=== PATIENT | female | born 1945 | race Caucasian/White ===

== ENCOUNTER 2018-06-29 10:19 | Inpatient (IN) | payer MEDICARE ==
[~2018-06-29] VITALS: Ht 154.9 cm; Wt 81.6 kg
[2018-06-29] MEDS ORDERED: IV NS 0.9% 1,000 ML BAG IV ONE (10:30)
[2018-06-29] MEDS ORDERED: ONDANSETRON HCL/PF 4 MG/2 ML VIAL IVP ONE (10:30)
[2018-06-29] MEDS ORDERED: MECLIZINE HCL 12.5 MG TABLET PO ONE (10:30)
[2018-06-29] MEDS ORDERED: LORAZEPAM INJ 2 MG/ML VIAL IV ONE (10:30)
[2018-06-29] MEDS ORDERED: MECLIZINE HCL 12.5 MG TABLET ONE (10:34)
[2018-06-29] MEDS ORDERED: ONDANSETRON HCL/PF 4 MG/2 ML VIAL ONE (10:34)
[2018-06-29] MEDS ORDERED: LORAZEPAM INJ 2 MG/ML VIAL ONE (10:35)
[2018-06-29 10:43] LABS: BASOPHILS # (AUTO) 0.1 /CMM (0.0-0.2); BASOPHILS % (AUTO) 0.6 % (0.0-2.0); EOSINOPHILS % (AUTO) 1.5 % (0.0-6.0); HEMATOCRIT 45 % (33-45); HEMOGLOBIN 14.9 g/dL (11.5-14.8); LYMPHOCYTES # (AUTO) 4.1 /CMM (0.8-4.8); LYMPHOCYTES % (AUTO) 49.1 % (20.0-44.0); MEAN CORPUSCULAR HGB CONC 33 g/dl (31.0-36.0); MEAN CORPUSCULAR VOLUME 86 fL (82-100); MONOCYTES # (AUTO) 0.6 /CMM (0.1-1.30); MONOCYTES % (AUTO) 6.8 % (2.0-12.0); NEUTROPHILS # (AUTO) 3.5 /CMM (1.8-8.9); PLATELET COUNT (AUTO) 207 /CMM (150-450); RED BLOOD CELL COUNT(AUTO) 5.24 MIL/uL (4.0-5.2); WHITE BLOOD COUNT (AUTO) 8.3 K/uL (4.3-11.0)
[2018-06-29 10:56] LABS: ALANINE AMINOTRANSFERASE 24 U/L (12-78); ALBUMIN 4.1 g/dL (3.4-5.0); ALKALINE PHOSPHATASE 114 U/L (46-116); ASPARTATE AMINOTRANSFERASE 16 U/L (15-37); BILIRUBIN,DIRECT 0.1 mg/dL (0.0-0.2); BILIRUBIN,TOTAL 0.6 mg/dL (0.2-1.0); CALCIUM, SERUM 10.2 mg/dL (8.5-10.1); CARBON DIOXIDE 26 mmol/L (21-32); CHLORIDE 99 mmol/L (98-107); GLUCOSE 173 mg/dL (74-106); SODIUM SERUM 139 mmol/L (136-145); TOTAL PROTEIN, SERUM 7.8 g/dL (6.4-8.2); UREA NITROGEN, BLOOD 21 mg/dL (7-18)
[2018-06-29 11:00] LABS: POTASSIUM 2.5 mmol/L (3.5-5.1)
--- NOTE | 2018-06-29 11:03 | NUR ---
patient wheeled to CT.
[2018-06-29 11:19] LABS: MAGNESIUM 1.5 mg/dL (1.8-2.4); PHOSPHORUS 1.3 mg/dL (2.5-4.9)
[2018-06-29] MEDS ORDERED: POTASSIUM CHLORIDE 20 MEQ TAB.PRT.SR PO ONE ×2 (11:30→11:51)
[2018-06-29] MEDS ORDERED: POTASSIUM CL. PREMIX PERIPHER. 50 ML ONE ×4 (11:49→17:35)
[2018-06-29] MEDS ORDERED: Magnesium 1GM/D5W 100ML PREMIX 100 ML IV ONE ×2 (11:50→14:20)
[2018-06-29] MEDS ORDERED: IV NS 0.9% 250 ML IV ONE (11:51)
[2018-06-29] MEDS ORDERED: CT SWABBABLE VALVE TRANS SET 1 EA INFUS.SET MC ONE (11:51)
[2018-06-29] MEDS ORDERED: IOHEXOL-350 100 ML VIAL IV ONE (11:51)
--- NOTE | 2018-06-29 11:54 | NUR ---
[address] CALL[address] STROKE PER DR. QUEVEDO [address] VIA LUCINDA.
--- NOTE | 2018-06-29 12:12 | NUR ---
PT BACK FROM CT VIA [facility]. PT AMB TO RESTROOM ASSISTED BY HER DAUGHTER, LUIS M WELL. C/O " LITTLE DIZZY ". DENIES CP, SOB, N/V WHILE AMBULATING. DR. QUEVEDO AWARE.
[2018-06-29] MEDS: POTASSIUM CL. PREMIX PERIPHER. 50 ML IV SCH ×4 (12:30→19:37)
[2018-06-29 12:42] LABS: APPEARANCE,URINE Slightly Cloudy (CLEAR); BILIRUBIN,URINE Negative (NEGATIVE); BLOOD, URINE Negative Ery/uL (NEGATIVE); COLOR,URINE Light yellow (YELLOW); KETONES,URINE 15 (NEGATIVE); LEUKOCYTE ESTERASE ,URINE Small (NEGATIVE); NITRITE, URINE Negative (NEGATIVE); PROTEIN,URINE Negative (NEGATIVE); UGLUCOSE Negative (NEGATIVE); UROBILINOGEN,URINE 0.2 EU/dL (0.2)
--- NOTE | 2018-06-29 12:47 | NUR ---
PT SITTING UP SPEAKING FLUENTLY WITH HER FAMILY. NO SLURRED SPEECH, NO FACIAL DROOP, NO ARM/LEG DRIFTING, NO VISUAL DISTURBANCES. ABLE TO SWALLOW PILLS & WATER W/O DIFFICULTY. VSS. C/O OF HEADACHE 09/27, ERMD AWARE. WILL CONT TO MONITOR. FAMILY @ BS.
[2018-06-29 12:49] LABS: BACTERIA,URINE Rare /HPF (None Seen); RBC,URINE 0-2 /HPF (0-2); SQUAMOUS EPITHELIAL CELL,UR Rare /HPF (None Seen); WBC,URINE 0-2 /HPF (0-3)
[2018-06-29] MEDS ORDERED: ACETAMINOPHEN ES 500 MG TABLET ONE (12:51)
[2018-06-29] MEDS ORDERED: ACETAMINOPHEN 325 MG TABLET PO ONE (13:00)
--- NOTE | 2018-06-29 14:04 | NUR ---
NURSING SUP AWARE OF BED TELE REQUEST FOR THIS PATIENT
[2018-06-29] MEDS: Magnesium 1GM/D5W 100ML PREMIX 100 ML IV SCH ×2 (14:18→16:20)
[2018-06-29] MEDS ORDERED: MULT-1168 PO (14:19)
[2018-06-29] MEDS ORDERED: ASPI-1152 PO (14:19)
[2018-06-29] MEDS ORDERED: RANI150T8 PO (14:19)
[2018-06-29] MEDS ORDERED: ASCO500T9 PO (14:19)
[2018-06-29] MEDS ORDERED: HYDR25TA4 PO (14:19)
[2018-06-29] MEDS ORDERED: ACID1TAB12 PO (14:19)
[2018-06-29] MEDS ORDERED: CALC-7 PO (14:19)
[2018-06-29] MEDS ORDERED: MAG HYDROX/AL HYDROX/SIMETH 30 ML UDC PO PRN (15:00)
[2018-06-29] MEDS ORDERED: Z GUARD REMEDY 2 OZ OINT TP PRN (15:00)
[2018-06-29] MEDS ORDERED: ONDANSETRON HCL/PF 4 MG/2 ML VIAL IVP PRN (15:00)
[2018-06-29] MEDS ORDERED: MAGNESIUM HYDROXIDE 30 ML UDC PO PRN (15:00)
[2018-06-29] MEDS ORDERED: ZOLPIDEM TARTRATE 5 MG TABLET PO PRN (15:00)
[2018-06-29] MEDS ORDERED: ACETAMINOPHEN 325 MG TABLET PO PRN (15:00)
[2018-06-29] MEDS ORDERED: HYDROCODONE/APAP 5/325MG 1 EACH TABLET PO PRN (15:00)
--- NOTE | 2018-06-29 15:00 | NUR ---
PT ASLEEP EASILY AWAKEN BY VERBAL STIMULI, DENIES CALLOWAY, SOB, DIZZINESS, N/V, WEAKNESS/NUMBNESS ON EXT @ THIS TIME. WILL CONT TO MONITOR.
--- NOTE | 2018-06-29 16:17 | NUR ---
PT ADMIT TO TELE ROOM 307-1 DX DIZZINESS R/O STROKE ACCEPTEED OSBALDO MANCIA
--- NOTE | 2018-06-29 17:46 | NUR ---
REPORT GIVEN TO JOSHUA ROLON @ [facility] FOR CONT OF CARE.
[2018-06-29 18:42] VITALS: BP 154/76
--- NOTE | 2018-06-29 19:03 | NUR ---
DIRECTOR OF CONSUMER MARKETING ADMITTING NOTES PT ADMITTED TO UNIT AT 1820 VIA GURNEY ACCOMPANIED BY E.ROc NGUYỄN. A/O X4. ABLE TO VERBALIZED NEEDS AND CONCERNS, NO COMPLAINTS OF DIZINESS OR PAIN VOICED AT THIS TIME. PT WITH ADMITTING DIAGNOSIS OF TIA/CVA. PT ORIENTED TO UNIT AND ROOM. V/S TAKEN AND RECORDED. PT PLACED ON TELEMONITORING SHOWING NSR WITH HR OF 63, NO COMPLAINTS OF CARDIAC DISTRESS VOICED. NIHSS STROKE SCALE INITIATED. PT SPEAKS CLEARLY WITH NO SLURRING. NO VISUAL DISTURBANCES. NO FACIAL DROOP NOTED. ABLE TO SWALLOW FOOD AND WATER WITHOUT CHOKING OR DIFFICULTY. NO DRIFT ON B/L UPPER AND LOWER EXTREMITIES. PT WITH CLEAR LUNGS BILATERALLY ON AUSCULTATION. ABDOMEN SOFT AND NON-DISTENDED WITH POSITIVE BOWEL SOUNDS ON FOUR QUADRANTS. PT WITH PIV'S ON LEFT AND RIGHT AC G #18, BOTH INTACT AND PATENT, 3RD BAG OF KCL INFUSING WELL. SAFETY MEASURES INITIATED. BED PLACED IN LOW LOCKED POSITION WITH SIDE RAILS UP X2. CALL LIGHT WITHIN REACH. ENDORSED TO DEVELOPMENT DISABILITY SPECIALIST NURSE ANA TO CONTINUE WITH ADMISSION PROCESS.
--- NOTE | 2018-06-29 19:37 | NUR ---
MUSIC HISTORIAN NOTES LAST DOSE OF POTASSIUM IV HUNG INFUSING AT 50ML/HR RATE PER PATIENT REQUEST VIA IV PUMP.
--- NOTE | 2018-06-29 19:45 | NUR ---
COUNTER INSTALLER NOTES RECEIVED ON BED A/O X4,BREATHING REGULAR,NOT IN ANY FORM OF DISTRESS,ABLE TO RAISE BOTH ARMS,NO DRIP.ABLE TO RAISE LOWER EXTREMITIES,NO DRIP.NEGATIVE SLURRED SPEECH,ABLE TO TALK WITH FRIENDS ON HER CELL PHONE.SALINE ON RIGHT AND LEFT AC INTACT AND PATENT.NO SKIN ISSUES.CALL LIGHT IN REACH,NEEDS ANTICIPATED.
--- NOTE | 2018-06-29 19:50 | NUR ---
TRAIN ELECTRONIC TECHNICIAN NOTES SR-78 ON TELE MONITOR.DENIES CHEST PAIN.
[2018-06-29 20:00] VITALS: BP 141/61
[2018-06-30] VITALS: BP 119/62
--- NOTE | 2018-06-30 03:24 | NUR ---
FURNITURE REFINISHER NOTES AWAKE THIS TIME,ASSISTED TO THE TOILET
[2018-06-30 04:00] VITALS: BP 129/67
--- NOTE | 2018-06-30 05:45 | NUR ---
DOUGHNUT DOUGH MIXER NOTES C/O HEADACHE,MEDICATED WITH TYLENOL 650MG PO PER PATIENT REQUEST.
--- NOTE | 2018-06-30 06:06 | NUR ---
HOUSING SPECIALIST NOTES SLEPT WITH INTERVAL,ABLE TO VERBALIZE NEEDS,NEGATIVE FOR SLURRED SPEECH,DENIES WEAKNESS ON UPPER AND LOWER EXTREMITIES.CALL LIGHT IN REACH,NEEDS ANTICIPATED.WILL ENDORSE TO DAY NURSE FOR RICK.
[2018-06-30 06:14] LABS: BASOPHILS % (AUTO) 0.4 % (0.0-2.0); EOSINOPHILS % (AUTO) 3.2 % (0.0-6.0); HEMATOCRIT 40 % (33-45); HEMOGLOBIN 13.1 g/dL (11.5-14.8); LYMPHOCYTES # (AUTO) 2.1 /CMM (0.8-4.8); LYMPHOCYTES % (AUTO) 30.5 % (20.0-44.0); MEAN CORPUSCULAR HGB CONC 33 g/dl (31.0-36.0); MEAN CORPUSCULAR VOLUME 87 fL (82-100); MONOCYTES # (AUTO) 0.7 /CMM (0.1-1.30); MONOCYTES % (AUTO) 10.5 % (2.0-12.0); NEUTROPHILS # (AUTO) 3.9 /CMM (1.8-8.9); NEUTROPHILS % (AUTO) 55.4 % (43.0-81.0); PLATELET COUNT (AUTO) 169 /CMM (150-450); RED BLOOD CELL COUNT(AUTO) 4.63 MIL/uL (4.0-5.2)
[2018-06-30 06:37] LABS: CALCIUM, SERUM 8.9 mg/dL (8.5-10.1); CARBON DIOXIDE 28 mmol/L (21-32); CHLORIDE 109 mmol/L (98-107); CREATININE 0.9 mg/dL (0.6-1.3); GLUCOSE 109 mg/dL (74-106); MAGNESIUM 1.9 mg/dL (1.8-2.4); PHOSPHORUS 3.3 mg/dL (2.5-4.9); POTASSIUM 3.9 mmol/L (3.5-5.1); SODIUM SERUM 144 mmol/L (136-145); UREA NITROGEN, BLOOD 17 mg/dL (7-18)
[2018-06-30 06:50] LABS: CHOLESTEROL 189 mg/dL (<200); HDL CHOLESTEROL 53 mg/dL (40-60); LDL 114 mg/dL (0-99); THYROID STIMULATING HORMONE 1.703 uIU/mL (0.358-3.74); TRIGLYCERIDES 141 mg/dL (30-150)
[2018-06-30 08:00] VITALS: BP 125/76
[2018-06-30] MEDS: PANTOPRAZOLE 40 MG TABLET.DR PO SCH (08:39)
[2018-06-30] MEDS: ASPIRIN EC 81 MG TABLET.DR PO SCH (08:39)
[2018-06-30 12:00] VITALS: BP 118/63
[2018-06-30] MEDS ORDERED: IOHEXOL-350 100 ML VIAL IV ONE (12:36)
[2018-06-30] MEDS ORDERED: CT SWABBABLE VALVE TRANS SET 1 EA INFUS.SET MC ONE (12:36)
[2018-06-30] MEDS ORDERED: METOPROLOL TARTRATE INJ 5 MG/5 ML AMPUL ONE ×5 (12:59→13:42)
[2018-06-30 16:00] VITALS: BP 100/56
--- NOTE | 2018-06-30 19:10 | NUR ---
RN NOTE PT AOX4, REMAINED STABLE TODAY. HAD CTA HEART DONE, NORMAL RESULT, NEEDS MET, MEDS GIVEN ORDERED, SAFETY MEASURES IN PLACE, CALL LIGHT WITHIN REACH. ABLE TO AMBULATE.
--- NOTE | 2018-06-30 19:51 | NUR ---
INSULATION CUTTER OPENING NOTES RECEIVED PATIENT IN BED AWARE. ALERT AND ORIENTED X4, VERBALLY RESPONSIVE, ABLE TO MAKE NEEDS KNOWN. BREATHING EVEN AND UNLABORED. NO SOB NOTED. TOLERATING ROOM AIR. NO COMPLAINTS OF PAIN OR DISCOMFORT. NO FACIAL GRIMACING. IV ON LEFT AC #18 INTACT AND PATENT. SKIN DRY AND WARM TO TOUCH. AFEBRILE. ALL OTHER NEEDS ATTENDED TO. SAFETY MEASURES IN PLACE. CALL LIGHT WITHIN REACH. WILL CONTINUE TO MONITOR.
[2018-06-30 19:57] VITALS: BP 135/76
[2018-06-30] MEDS ORDERED: ATORVASTATIN 40 MG TABLET PO SCH (22:00)
[2018-07-01] VITALS: BP 136/73
[2018-07-01 06:12] LABS: BASOPHILS % (AUTO) 0.3 % (0.0-2.0); HEMATOCRIT 42 % (33-45); LYMPHOCYTES # (AUTO) 2.1 /CMM (0.8-4.8); LYMPHOCYTES % (AUTO) 30.3 % (20.0-44.0); MEAN CORPUSCULAR HGB CONC 33 g/dl (31.0-36.0); MEAN CORPUSCULAR VOLUME 86 fL (82-100); MONOCYTES # (AUTO) 0.7 /CMM (0.1-1.30); MONOCYTES % (AUTO) 9.4 % (2.0-12.0); PLATELET COUNT (AUTO) 173 /CMM (150-450); RED BLOOD CELL COUNT(AUTO) 4.91 MIL/uL (4.0-5.2); WHITE BLOOD COUNT (AUTO) 7.1 K/uL (4.3-11.0)
[2018-07-01 06:30] LABS: CALCIUM, SERUM 9.2 mg/dL (8.5-10.1); CARBON DIOXIDE 29 mmol/L (21-32); CHLORIDE 106 mmol/L (98-107); CREATININE 0.9 mg/dL (0.6-1.3); GLUCOSE 102 mg/dL (74-106); MAGNESIUM 1.8 mg/dL (1.8-2.4); PHOSPHORUS 3.5 mg/dL (2.5-4.9); POTASSIUM 3.9 mmol/L (3.5-5.1); SODIUM SERUM 143 mmol/L (136-145); UREA NITROGEN, BLOOD 16 mg/dL (7-18)
--- NOTE | 2018-07-01 06:56 | NUR ---
RN MS CLOSING NOTES PATIENT RESTING IN BED. NO ACUTE CHANGES THROUGHOUT SHIFT. BREATHING EVEN AND UNLABORED. NO SOB NOTED. TOLERATING ROOM AIR. NO COMPLAINTS OF PAIN OR DISCOMFORT. NO FACIAL GRIMACING. IV ON LEFT AC #18 INTACT AND PATENT. SKIN DRY AND WARM TO TOUCH. AFEBRILE. ALL OTHER NEEDS ATTENDED TO. SAFETY MEASURES IN PLACE. CALL LIGHT WITHIN REACH. WILL ENDORSE TO ONCOMING NURSE FOR RICK.
--- NOTE | 2018-07-01 07:10 | NUR ---
RN OPENING NOTES RECEIVED PATIENT IN BED RESTING. A/OX4, ABLE TO MAKE NEEDS KNOWN. NO ACUTE DISTRESS, NO SOB. DENIED PAIN OR DISCOMFORT AT THE MOMENT. NO FACIAL DROOP, NO WEAKNESS, SPEECH IS CLEAR. IV ACCESS INTACT AND PATENT. KEPT PATIENT SAFE AND COMFORTABLE. BED IN LOW/LOCKED POSITION, SIDERAILS UPX2, CALL LIGHT IN REACH. KEPT NPO, FOR MRI TODAY. WILL CONTINUE TO MONITOR ACCORDINGLY.
[2018-07-01 08:00] VITALS: BP 127/80
--- NOTE | 2018-07-01 13:00 | NUR ---
ORTHOSTATICS: 130/82 LYING 138/95 SITTING 158/97 STANDING
[2018-07-01] MEDS: PANTOPRAZOLE 40 MG TABLET.DR PO SCH (15:30)
[2018-07-01] MEDS: ASPIRIN EC 81 MG TABLET.DR PO SCH (15:34)
[2018-07-01 16:00] VITALS: BP 140/76
--- NOTE | 2018-07-01 16:06 | NUR ---
RN NOTES RECEIVED A CALL FROM DR DUVALL FROM RADIOLOGY DEPT, PATIENT IS POSITIVE FOR BILATERAL BASAL GANGLIA INFARCT. NOTIFIED DR ROBLERO AND JENNY VAZ NP
--- NOTE | 2018-07-01 16:20 | NUR ---
NEURO CHECK DONE EVERY 2-4HRS NEEDED. PATIENT NO DEFICIT. NO FACIAL DROOP, NO WEAKNESS, NO HEADACHE, NO BLURRED VISION, PERRLA, SPEECH IS CLEAR. Addendum: 07/01/18 at 1624 by JOSE MIGUEL BARRETO RONAL CHILDERS
[2018-07-01] MEDS ORDERED: GADODIAMIDE 2.5 MMOL/5 ML VIAL IJ ONE (16:41)
--- NOTE | 2018-07-01 17:15 | NUR ---
PER MARGOT VAZ NP, TRANSFER PATIENT TO [facility]/TELE. TIRE TRIMMER HAND NOTIFIED
[2018-07-01 18:37] VITALS: BP 140/80
--- NOTE | 2018-07-01 18:37 | NUR ---
TRANSFER PATIENT TO [facility] 118-1, PATIENT STABLE CONDITION. REPORT GIVEN TO RONALDO LEATHER DRIER.
--- NOTE | 2018-07-01 18:40 | NUR ---
[facility] RN,patient received from [facility] performed NIHSS with on going RN score of O patient awake and alert oriented x4 resp unlabored no sob noted vitals taken and recorded, hep lock in place with no signs of redness or swelling noted plan of care and safety discussed and verbalized understanding patient encouraged use of call light to make all needs known will continue to assess and evaluate call light with in reach
--- NOTE | 2018-07-01 20:00 | NUR ---
[facility] RN OPENING NOTES RECEIVED REPORT FROM RONALDO RN. PATIENT A/A/O X4, ABLE TO MAKE NEEDS KNOWN. BREATHING EVEN & UNLABORED, TOLERATING ROOM AIR. DENIES ANY SOB OR DIFFICULTY BREATHING. ON TELE W/ SINUS RHYTHM, HR 77. LEFT AC IV #18 INTACT & PATENT W/ DRESSING CDI, SALINE LOCKED. NEURO CHECK DONE W/ NO DEFICITS NOTED. NO FACIAL DROOP, SLURRED SPEECH OR LIMB WEAKNESS. DENIES ANY PAIN OR DISCOMFORT @ THIS TIME. SAFETY MEASURES IN PLACE W/ SIDE RAILS UP & CALL LIGHT WITHIN REACH. WILL CONTINUE TO MONITOR.
--- NOTE | 2018-07-01 20:15 | NUR ---
[facility] RN NOTES PATIENT REFUSED VITAL SIGNS TO BE TAKEN.
--- NOTE | 2018-07-01 21:00 | NUR ---
[facility]EX[facility] RN NOTES PATIENT DEMANDING TO BE TRANSFERRED BACK TO [facility]. EXPLAINED REASON FOR CLOSE OBSERVATION IN [facility] BUT STILL DEMANDS TO BE TRANSFERRED OR WILL LEAVE AMA. INFORMED TANA JUSTICE PROFESSOR AND DR DELVALLE AND RECEIVED CLEARANCE TO DOWNGRADE TO TELE STATUS AND TRANSFER BACK TO [facility]. PATIENT INFORMED.
--- NOTE | 2018-07-01 21:36 | NUR ---
[facility] RN NOTES PATIENT TRANSFERRED TO [facility] & REPORT GIVEN TO GAURAV LEWIS.
--- NOTE | 2018-07-01 21:40 | NUR ---
SOCIAL SERVICE ASSISTANT NOTES RECEIVED PT FROM [facility], STABLE, AWAKE ALERT ORIENTED X4, BREATHING EVEN AND UNLABORED ON ROOM AIR. TELE MONITOR IN PLACE, IV ACCESS ON THE L AC g18 SL. BED IN LOWEST LOCKED POSITION CALL LIGHT WITHIN REACH AT ALL TIMES WILL CONTINUE TO MONITOR
[2018-07-01 22:00] VITALS: BP 138/78
[2018-07-01] MEDS ORDERED: ATORVASTATIN 40 MG TABLET PO SCH ×2 (22:00)
[2018-07-02 04:00] VITALS: BP 138/77
[2018-07-02 05:20] VITALS: BP 138/77
--- NOTE | 2018-07-02 07:12 | NUR ---
SALES OPERATIONS ASSISTANT CLOSING NOTES PT REMAINS IN BED STABLE, AWAKE ALERT ORIENTED X4, BREATHING EVEN AND UNLABORED ON ROOM AIR. TELE MONITOR IN PLACE SR, IV ACCESS ON THE L AC g18 SL. NO COMPLAINT OF PAIN, REPORTS FEELING DIZZY UPON GOING OT THE BATHROOM. BED IN LOWEST LOCKED POSITION CALL LIGHT WITHIN REACH AT ALL TIMES WILL ENDORSE TO DAY NURSE FOR RICK
[2018-07-02 08:00] VITALS: BP 128/80
[2018-07-02] MEDS: PANTOPRAZOLE 40 MG TABLET.DR PO SCH (08:00)
--- NOTE | 2018-07-02 08:00 | NUR ---
ms rn received on bed, awake,alert,oriented x4,not in any form of distress, respirations even and unlabored,no sob noted, lungs are clear,abdomen soft,positive bowel sounds, denies pain at this time, will monitor patient's condition.
--- NOTE | 2018-07-02 08:30 | NUR ---
ms العلي breakfast served,due meds given,tolerated well.will monitor patient.
--- NOTE | 2018-07-02 08:40 | NUR ---
ms rn was seen by dr. sutherland, ok to go home today, will be seen first by dr. alcala.
[2018-07-02] MEDS: ASPIRIN EC 81 MG TABLET.DR PO SCH (09:13)
--- NOTE | 2018-07-02 09:30 | NUR ---
ms rn was seen by dr. alcala, ready to go home.
[2018-07-02] MEDS ORDERED: ATOR40TA PO (11:32)
[2018-07-02] MEDS ORDERED: ASPI-605 PO (11:32)
--- NOTE | 2018-07-02 13:30 | NUR ---
ms rn interventional instructions given, went home accompanied by son in law,all needs attended.
== END 2018-07-02 13:40 | disposition home or self-care (01) | DRG 64 ==
LOC: ER 10:23 → TELE 16:22 → MED 06-30 09:28 → TELE 06-30 10:53 → MED 07-01 01:29 → TELE-TD 07-01 18:23 → TELE1 07-01 21:02 → TELE 07-01 22:15 → MED 07-02 08:51
PROVIDERS: ADMIT Student in an Organized Health Care Education/Training Program; ATTEND Internal Medicine
DX: I63.9 Cerebral infarction, unspecified (principal); I21.A1 Myocardial infarction type 2; H81.49 Vertigo of central origin, unspecified ear; E86.0 Dehydration; E83.42 Hypomagnesemia; E83.52 Hypercalcemia; E87.6 Hypokalemia; E83.39 Other disorders of phosphorus metabolism; R73.03 Prediabetes
CPT/HCPCS: 36415; 70450-TC; 70496-TC; 70498-TC; 70553-TC; 71045-TC; 75574; 80048-TC; 80061-TC; 80076-TC; 81000-TC; 82962-TC; 83735-TC; 84100-TC; 84443-TC; 84484-TC; 85025-TC; 85652-TC; 85730-TC; 87081-TC; 92611-TC; 93307-TC; 93971-TC; A9579; G0378; J2060; J2405; J3475; J3480; J3490; J7030; J7050; J8597; Q9967

== ENCOUNTER 2018-07-09 10:57 | Emergency (ER) | payer MEDICARE ==
[~2018-07-09] VITALS: Ht 154.9 cm; Wt 80.3 kg
[~2018-07-09 10:57] MED LIST: ACID1TAB12 PO; ASCO500T9 PO; ASPI-1152 PO; ASPI-605 PO; ATOR40TA PO; CALC-7 PO; HYDR25TA4 PO; MULT-1168 PO; RANI150T8 PO
[2018-07-09 11:42] LABS: BASOPHILS % (AUTO) 0.6 % (0.0-2.0); EOSINOPHILS % (AUTO) 1.7 % (0.0-6.0); HEMATOCRIT 45 % (33-45); HEMOGLOBIN 14.9 g/dL (11.5-14.8); LYMPHOCYTES # (AUTO) 1.9 /CMM (0.8-4.8); MEAN CORPUSCULAR HGB CONC 33 g/dl (31.0-36.0); MEAN CORPUSCULAR VOLUME 87 fL (82-100); MONOCYTES # (AUTO) 0.7 /CMM (0.1-1.30); MONOCYTES % (AUTO) 9.7 % (2.0-12.0); NEUTROPHILS # (AUTO) 4.1 /CMM (1.8-8.9); PLATELET COUNT (AUTO) 217 /CMM (150-450); RED BLOOD CELL COUNT(AUTO) 5.19 MIL/uL (4.0-5.2); WHITE BLOOD COUNT (AUTO) 6.8 K/uL (4.3-11.0)
[2018-07-09 11:55] LABS: CALCIUM, SERUM 10.6 mg/dL (8.5-10.1); CARBON DIOXIDE 31 mmol/L (21-32); CHLORIDE 104 mmol/L (98-107); CREATININE 0.9 mg/dL (0.6-1.3); GLUCOSE 118 mg/dL (74-106); POTASSIUM 3.6 mmol/L (3.5-5.1); SODIUM SERUM 140 mmol/L (136-145); UREA NITROGEN, BLOOD 19 mg/dL (7-18)
[2018-07-09 12:01] LABS: ALANINE AMINOTRANSFERASE 22 U/L (12-78); ALBUMIN 3.8 g/dL (3.4-5.0); ALKALINE PHOSPHATASE 108 U/L (46-116); ASPARTATE AMINOTRANSFERASE 15 U/L (15-37); BILIRUBIN,DIRECT 0.1 mg/dL (0.0-0.2); BILIRUBIN,TOTAL 0.2 mg/dL (0.2-1.0); TOTAL PROTEIN, SERUM 7.6 g/dL (6.4-8.2)
[2018-07-09 12:55] VITALS: BP 122/88
--- NOTE | 2018-07-09 13:12 | NUR ---
Patient discharged to home in stable condition. Written and verbal after care instructions given. Patient verbalizes understanding of instruction.
== END 2018-07-09 13:12 | disposition home or self-care (01) ==
LOC: ER 10:57
DX: R42 Dizziness and giddiness (principal); Z86.73 Personal history of transient ischemic attack (TIA), and cerebral infarction without residual deficits; Z79.82 Long term (current) use of aspirin; Z79.899 Other long term (current) drug therapy
CPT/HCPCS: 36415; 80048; 80076; 84484; 85025; 93005; 99284; A4606

== ENCOUNTER 2020-12-27 00:52 | Inpatient (IN) | payer MEDICARE ==
[~2020-12-27] VITALS: Ht 154.9 cm; Wt 84.8 kg
[~2020-12-27 00:52] MED LIST changes: +ASCO-352 PO; -ASCO500T9 PO; -ASPI-1152 PO; +ASPI-1420 PO
--- NOTE | 2020-12-27 01:00 | NUR ---
PATIENT AMADOU C/O DIZZINESS, LAST WELL KNOWN AT 0020. PATIENT STATES SHE "FEELS HOW IT WAS WHEN I HAD A STROKE TWO YEARS AGO". NO DEFECITS NOTED. PATIENT IS A/OX 4, RR EVEN AND UNABAORED, NO SIGNS OF SOB NOTED. PATIENT CONNECTED TO CARDIAC AND POX MONITOR.
[2020-12-27] MEDS ORDERED: ASPIRIN 325 MG TABLET ONE (01:18)
[2020-12-27 01:20] LABS: BASOPHILS # (AUTO) 0.1 K/uL (0.0-0.2); BASOPHILS % (AUTO) 0.7 % (0.0-2.0); EOSINOPHILS % (AUTO) 2.6 % (0.0-6.0); HEMATOCRIT 40 % (33-45); LYMPHOCYTES # (AUTO) 2.9 K/uL (0.8-4.8); LYMPHOCYTES % (AUTO) 31.7 % (20.0-44.0); MEAN CORPUSCULAR HGB CONC 32 g/dl (31.0-36.0); MEAN CORPUSCULAR VOLUME 88 fL (82-100); MONOCYTES # (AUTO) 0.8 K/uL (0.1-1.30); MONOCYTES % (AUTO) 8.7 % (2.0-12.0); NEUTROPHILS # (AUTO) 5.2 K/uL (1.8-8.9); NEUTROPHILS % (AUTO) 56.3 % (43.0-81.0); PLATELET COUNT (AUTO) 194 K/uL (150-450); RED BLOOD CELL COUNT(AUTO) 4.59 MIL/uL (4.0-5.2); WHITE BLOOD COUNT (AUTO) 9.3 K/uL (4.3-11.0)
[2020-12-27] MEDS ORDERED: ASPIRIN 325 MG TABLET PO ONE (01:30)
[2020-12-27 01:34] LABS: CALCIUM, SERUM 9.2 mg/dL (8.5-10.1); CARBON DIOXIDE 29 mmol/L (21-32); CHLORIDE 106 mmol/L (98-107); CREATININE 1.3 mg/dL (0.6-1.3); GLUCOSE 115 mg/dL (74-106); POTASSIUM 3.7 mmol/L (3.5-5.1); SODIUM SERUM 146 mmol/L (136-145); UREA NITROGEN, BLOOD 34 mg/dL (7-18)
[2020-12-27 01:40] LABS: CHOLESTEROL 209 mg/dL (<200); HDL CHOLESTEROL 48 mg/dL (40-60); LDL 122 mg/dL (0-99); TRIGLYCERIDES 176 mg/dL (30-150)
--- NOTE | 2020-12-27 03:19 | NUR ---
COVID SWAB COLLECTED AND SENT TO LAB
--- NOTE | 2020-12-27 04:32 | NUR ---
CALLED FOR REPORT NURSE NOT AVAILABLE
--- NOTE | 2020-12-27 04:42 | NUR ---
REPORT GIVEN TO JOSHUA ESTRADA
--- NOTE | 2020-12-27 04:55 | NUR ---
PATIENT TRANSFERRED UNDER ACLS
[2020-12-27] MEDS ORDERED: DIAZEPAM 5 MG TABLET PO PRN (05:00)
[2020-12-27] MEDS ORDERED: Z GUARD REMEDY 2 OZ OINT TP PRN (05:00)
[2020-12-27] MEDS ORDERED: ONDANSETRON HCL/PF 4 MG/2 ML VIAL IVP PRN (05:00)
[2020-12-27] MEDS ORDERED: ACETAMINOPHEN 325 MG TABLET PO PRN (05:00)
[2020-12-27] MEDS ORDERED: IV 1/2NS 1000 ML 1,000 ML IV PRN (05:00)
--- NOTE | 2020-12-27 05:00 | NUR ---
BLOCK CAPTAIN OPENING NOTES RECEIVED PT FROM Kemal.Natasha VIA MARTA ACCOMPANIED BY RN, ENRIQUETA. PT IS A/O X4, ABLE TO VERBALIZE ALL NEEDS. DENIES ANY PAIN OR DISCOMFORT. ON ROOM AIR. NO SOB. DENIES DIZZINESS AT THIS TIME. PT ABLE TO MOVE ALL EXTREMITIES. NO WEAKNESS NOTED. IV ACCESS ON L-AC #20 INTACT, PATENT, AND FLUSHES WELL. ORIENTED TO ROOM AND STAFF. HEALTH TEACHINGS PROVIDED. PT VERBALIZED UNDERSTANDING OF ALL INSTRUCTIONS. SAFETY MEASURES IN PLACE, BED IN LOWEST LOCKED POSITION, S/R UP X2, CALL LIGHT AND TABLE WITHIN REACH.
--- NOTE | 2020-12-27 07:25 | NUR ---
MECHANIC HELPER CLOSING NOTES PT AWAKE IN BED, A/O X4, ABLE TO VERBALIZE ALL NEEDS. NO C/O PAIN OR DISCOMFORT. NO SOB. MORNING CARE RENDERED. PT IN NO ACUTE DISTRESS. ALL NEEDS ATTENDED TO. SAFETY MEASURES MAINTAINED, BED IN LOWEST LOCKED POSITION, S/R UP X2, CALL LIGHT WITHIN EASY REACH.
--- NOTE | 2020-12-27 07:30 | NUR ---
PT RECEIVED RESTING COMFORTABLY IN BED. NO S/S OR C/O PAIN OR DISTRESS NOTED. SIDE RAILS UP X2, CALL LIGHT LEFT WITHIN REACH. WILL CONTINUE PLAN OF CARE.
[2020-12-27] MEDS ORDERED: FAMO20TA8 PO (08:27)
[2020-12-27] MEDS ORDERED: TRIA1CAP20 PO (08:27)
[2020-12-27] MEDS ORDERED: LORA10TA7 PO (08:27)
[2020-12-27] MEDS ORDERED: CYAN500T9 PO (08:27)
[2020-12-27] MEDS ORDERED: TURM1CAP2 PO (08:27)
[2020-12-27] MEDS ORDERED: CHOL100062 PO (08:27)
[2020-12-27] MEDS ORDERED: DOXA1TAB2 PO (08:27)
[2020-12-27] MEDS ORDERED: HYDROCHLOROTHIAZIDE 25 MG TABLET PO SCH (09:00)
[2020-12-27 09:11] VITALS: BP 137/74
[2020-12-27] MEDS: LISINOPRIL (10MG) 10 MG TABLET PO SCH (09:19)
[2020-12-27] MEDS: ASPIRIN EC 81 MG TABLET.DR PO SCH (09:19)
[2020-12-27 12:00] VITALS: BP 128/82
[2020-12-27 16:11] LABS: BILIRUBIN,URINE NEGATIVE (NEGATIVE); COLOR,URINE YELLOW (YELLOW); LEUKOCYTE ESTERASE ,URINE NEGATIVE (NEGATIVE); NITRITE, URINE NEGATIVE (NEGATIVE); PROTEIN,URINE NEGATIVE (NEGATIVE); UGLUCOSE NEGATIVE (NEGATIVE); UROBILINOGEN,URINE 0.2 EU/dL (0.2)
[2020-12-27 16:40] VITALS: BP 116/60
--- NOTE | 2020-12-27 19:34 | NUR ---
Patient is A&Ox4. Cooperative and pleasant. Tele monitor leads in place. In SR at this time. IV currently infusinf 1/2NS at 75cc/hr. Can make needs known. No signs of distress.
[2020-12-27 20:00] VITALS: BP 101/50
--- NOTE | 2020-12-27 21:02 | NUR ---
Patient refusing statin as cholesterol is 'BORDERLINE RISK" and mri and CT show no acute infarct. states she does not want to take atorvastatin for that reason pt states. Pt is nurse as profession.
--- NOTE | 2020-12-27 21:04 | NUR ---
pharmacy updated per patient.
[2020-12-27] MEDS ORDERED: ATORVASTATIN 40 MG TABLET PO SCH (22:00)
[2020-12-28] VITALS: BP_SYST 125; BP_SYST 128; BP_DIAS 55; BP_DIAS 72
--- NOTE | 2020-12-28 01:01 | NUR ---
Patient taken off IVF to go to the bathroom. refused to be put back on. stated she will be mindful to drink enough water to stay hydrated.
--- NOTE | 2020-12-28 01:02 | NUR ---
explained to pt risks and benefits of med/IVF refusals
[2020-12-28 03:53] VITALS: BP 132/46
[2020-12-28 04:00] VITALS: BP 132/46
[2020-12-28 06:24] LABS: CALCIUM, SERUM 9.3 mg/dL (8.5-10.1); CREATININE 1.2 mg/dL (0.6-1.3); PHOSPHORUS 3.6 mg/dL (2.5-4.9); POTASSIUM 3.7 mmol/L (3.5-5.1)
--- NOTE | 2020-12-28 06:37 | NUR ---
Patient slept intermittently throughout the night. A&Ox4, denies vertigo, dizziness, lightheadedness, or feeling unbalanced. VSS. SB/SR 55-65BPM on monitor with occasional PVCs. Educated to stay NPO post 0300 for CTA in AM. Consents signed.
[2020-12-28 06:48] LABS: BASOPHILS % (AUTO) 0.3 % (0.0-2.0); EOSINOPHILS % (AUTO) 3.4 % (0.0-6.0); HEMATOCRIT 38 % (33-45); HEMOGLOBIN 12.5 g/dL (11.5-14.8); LYMPHOCYTES # (AUTO) 2.1 K/uL (0.8-4.8); LYMPHOCYTES % (AUTO) 29.4 % (20.0-44.0); MEAN CORPUSCULAR HGB CONC 33 g/dl (31.0-36.0); MEAN CORPUSCULAR VOLUME 87 fL (82-100); MONOCYTES # (AUTO) 0.7 K/uL (0.1-1.30); MONOCYTES % (AUTO) 9.8 % (2.0-12.0); NEUTROPHILS # (AUTO) 4.1 K/uL (1.8-8.9); NEUTROPHILS % (AUTO) 57.1 % (43.0-81.0); PLATELET COUNT (AUTO) 172 K/uL (150-450); RED BLOOD CELL COUNT(AUTO) 4.34 MIL/uL (4.0-5.2); WHITE BLOOD COUNT (AUTO) 7.1 K/uL (4.3-11.0)
[2020-12-28 08:00] VITALS: BP 100/57
[2020-12-28] MEDS ORDERED: IOHEXOL-350 100 ML VIAL IV ONE (08:23)
[2020-12-28] MEDS ORDERED: CT SWABBABLE VALVE TRANS SET 1 EA INFUS.SET MC ONE (08:24)
[2020-12-28] MEDS ORDERED: IV NS 0.9% 250 ML IV ONE (08:24)
[2020-12-28] MEDS: LISINOPRIL (10MG) 10 MG TABLET PO SCH (09:00)
--- NOTE | 2020-12-28 09:00 | NUR ---
RECEIVED PT. IN AM ALERT AND ORIENTED X4.VS STABLE.SKIN WARM AND DRY.
[2020-12-28] MEDS: ASPIRIN EC 81 MG TABLET.DR PO SCH (09:23)
--- NOTE | 2020-12-28 09:33 | NUR ---
HEAD AND NECK CT COMPLETED.
[2020-12-28] MEDS ORDERED: IV 1/2NS 1000 ML 1,000 ML IV PRN (10:11)
[2020-12-28 15:58] VITALS: BP 124/57
--- NOTE | 2020-12-28 16:55 | NUR ---
PT. ADAMANT ABOUT LEAVING,DTR. HERE.SIGNED AMA PAPER.HEP LOCK OUT.INSTRUCTED ON DISADVANTAGES OF SIGNING OUT AMA.MOST OF HYDRATING IV ABSORBED.
--- NOTE | 2020-12-28 17:20 | NUR ---
DR. MOORE TEXTED MESSAGE THAT PT. SIGNED OUT AMA.
[2020-12-28] MEDS ORDERED: MECL-159 PO (17:24)
[2020-12-28] MEDS ORDERED: CLOP75TA15 PO (17:24)
--- NOTE | 2020-12-28 17:29 | NUR ---
DR. MOORE ENTERED DISCHARGE ORDER.PT. GIVEN ALL DC PAPERS AND TAKEN TO LOBBY VIA W/C ACCOMPANIED BY TERMITE TREATER HELPER AND DTR.AWARE TO FOLLOW UP WITH PMD AND CLINICAL STATISTICS MANAGER.
== END 2020-12-28 17:48 | disposition left against medical advice (07) | DRG 149 ==
LOC: ER 00:52 → TELE 04:34 → MED 12-28 08:19
PROVIDERS: ADMIT Nurse Practitioner Acute Care; ATTEND Nurse Practitioner Family
DX: H81.399 Other peripheral vertigo, unspecified ear (principal); Z68.43 Body mass index [BMI] 50.0-59.9, adult; N17.9 Acute kidney failure, unspecified; E87.0 Hyperosmolality and hypernatremia; E66.01 Morbid (severe) obesity due to excess calories; Z20.822 Contact with and (suspected) exposure to COVID-19; Z86.73 Personal history of transient ischemic attack (TIA), and cerebral infarction without residual deficits; Z98.890 Other specified postprocedural states; Z79.899 Other long term (current) drug therapy; Z79.82 Long term (current) use of aspirin; E86.0 Dehydration; R73.9 Hyperglycemia, unspecified; E78.5 Hyperlipidemia, unspecified; M19.90 Unspecified osteoarthritis, unspecified site; Z68.35 Body mass index [BMI] 35.0-35.9, adult; E66.9 Obesity, unspecified; I10 Essential (primary) hypertension; I25.2 Old myocardial infarction; F41.9 Anxiety disorder, unspecified; I66.02 Occlusion and stenosis of left middle cerebral artery
CPT/HCPCS: 36415; 70450-TC; 70496-TC; 70498-TC; 70551-TC; 71045-TC; 80048-TC; 80061-TC; 82962-TC; 83735-TC; 84100-TC; 84484-TC; 85025-TC; 85730-TC; 87081-TC; 93307-TC; 97116-TC; 97530-TC; C9803; G0378; J3490; J7050; Q9967